=== PATIENT | female | born 1985 | race Caucasian/White ===

== ENCOUNTER 2018-06-25 10:19 | Emergency (ER) | payer MEDICAID ==
[~2018-06-25] VITALS: Ht 162.6 cm; Wt 95.5 kg
[2018-06-25 11:04] VITALS: Ht 162.6 cm; Wt 95.5 kg
[2018-06-25] MEDS ORDERED: KEFLEX500 MG PO (12:02)
[2018-06-25] MEDS ORDERED: BACTRIM 400-801 TAB PO (12:02)
[2018-06-25 12:26] VITALS: BP 116/77
[2018-07-02 20:08] LABS: AEROBE ID Preliminary report (())
[2018-07-02 20:08] LABS: AEROBE ID Preliminary report (())
[2018-07-04 20:06] LABS: RESULT 1 Pantoea species (())
[2018-07-04 20:06] LABS: RESULT 1 Pantoea species (())
== END 2018-06-25 12:20 | disposition home or self-care (01) ==
LOC: D.ER 10:19
PROVIDERS: Family Medicine
DX: L03.311 Cellulitis of abdominal wall (principal); G40.909 Epilepsy, unspecified, not intractable, without status epilepticus; F17.200 Nicotine dependence, unspecified, uncomplicated

== ENCOUNTER 2021-03-24 15:45 | Emergency (ER) | payer MEDICAID ==
[~2021-03-24] VITALS: Ht 162.6 cm; Wt 100.0 kg
[~2021-03-24 15:45] MED LIST: BACTRIM 400-801 TAB PO; KEFLEX500 MG PO
[2021-03-24 16:02] VITALS: BP 135/81; Ht 162.6 cm; Wt 100.0 kg
[2021-03-24] MEDS ORDERED: VOLTAREN75 MG PO (19:40)
== END 2021-03-24 20:00 | disposition home or self-care (01) ==
LOC: D.ER 15:45
DX: M79.641 Pain in right hand (principal)